=== PATIENT | female | born 1985 | race African-American/Black ===

== ENCOUNTER 2017-06-09 21:17 | Emergency (ER) | payer SELFPAY ==
[2017-06-09 21:43] LABS: Bilirubin Small (Negative); Blood, Urine Trace (Negative); Clarity Turbid (Clear); Glucose, Urine (Dipstick) Negative (Negative); Leukocyte Trace (Negative); Nitrite Positive (Negative); Pregu Control Background? CLEAR/WHITE (CLR/WHITE); Pregu Control Bar Appear? YES (CONTROL BAR); Protein, Urine (Dipstick) 30 mg/dL (Neg-Trace)
[2017-06-09 21:44] LABS: Pregnancy Test - Urine (BHCG) Negative (Negative)
[2017-06-09 21:52] LABS: Bacteria/HPF 2+ HPF (None Seen); Hyaline Casts/LPF NONE SEEN LPF (0-3 Hyaline); RBC/HPF 0-3 HPF (0-3)
[2017-06-09] MEDS ORDERED: Dexamethasone 10 MG/ML VIAL ONE (22:01)
== END 2017-06-09 22:10 | disposition home or self-care (01) ==
LOC: SCSER 21:17
DX: N30.01 Acute cystitis with hematuria (principal); D50.0 Iron deficiency anemia secondary to blood loss (chronic); F17.210 Nicotine dependence, cigarettes, uncomplicated
CPT/HCPCS: 81003; 81015; 81025; 99406; J1100

== ENCOUNTER 2017-12-04 18:53 | Emergency (ER) | payer SELFPAY ==
[2017-12-04] MEDS ORDERED: Ondansetron HCl/PF 4 MG/2 ML Vial ONE (19:16)
[2017-12-04 19:38] LABS: BHCG - Serum Negative (NEGATIVE); Pregs Control Background? CLEAR/WHITE (CLR/WHITE); Pregs Control Bar Appear? YES (CONTROL BAR)
[2017-12-04 19:43] LABS: #Basophils 0.1 thou/uL (0.0-0.2); #Lymphocytes 2.1 thou/uL (1.20-3.40); #Neutrophils 7.1 thou/uL (1.40-6.50); %Basophils 0.6 % (0.0-1.0); %Eosinophils 0.4 % (0.0-10.0); %Monocytes 9.9 % (0.0-10.0); %Neutrophils 69.1 % (42.0-75.0); Hemoglobin 8.3 g/dL (12.0-16.0); Mean Corpuscular Hemoglobin 18.8 pg (27.0-31.0); Mean Corpuscular Volume 64.8 fL (78.0-98.0); Mean Platelet Volume 7.2 fL (7.4-10.4); Platelet Count 338 thou/uL (130-400); RBC Distribution Width 19.6 % (11.5-14.5); Red Blood Cell (RBC) Count 4.43 mill/uL (4.20-5.40); White Blood Cell (WBC) Count 10.3 thou/uL (4.8-10.8)
[2017-12-04 19:52] LABS: Anisocytosis SLIGHT = 6-15 cells (100X) (0-5/hpf); Hypochromia SLIGHT = 6-15 cells (100X) (0-5/hpf); MDiff Complete? YES; Microcytosis SLIGHT = 6-15 cells (100X) (0-5/hpf); Ovalocytes SLIGHT = 2-5 cells (100X) (0-1/hpf); PLT Morphology Comment Appears Adequate; Poikilocytosis SLIGHT = 6-15 cells (100X) (0-5/hpf); Polychromasia MODERATE = 3-4 cells (100X) (0-2/hpf); Reflex for Review?? YES; Schistocytes SLIGHT = 2-5 cells (100X) (0-1/hpf); Target Cells SLIGHT = 2-5 cells (100X) (0-1/hpf); Tear Drops SLIGHT = 2-5 cells (100X) (0-1/hpf)
[2017-12-04 19:53] LABS: ALT (SGPT) 12 U/L (8-55); AST (SGOT) 14 U/L (5-34); Albumin 4.2 g/dL (3.5-5.0); Alkaline Phosphatase 104 U/L (40-150); Anion Gap 12 mmol/L (10-20); BUN (Urea Nitrogen) 10 mg/dL (7.0-18.7); Bilirubin, Total 0.7 mg/dL (0.2-1.2); Calc. Creatinine Clearance 0 mL/min (70-130); Calcium 9.2 mg/dL (7.8-10.44); Carbon Dioxide 25 mmol/L (22-29); Chloride 103 mmol/L (98-107); Estimated GFR-MDRD Greater than 90; Globulin 3.6 g/dL (2.4-3.5); Glucose 112 mg/dL (70-105); Lipase 29 U/L (8-78); Protein, Total 7.8 g/dL (6.0-8.3); Sodium 137 mmol/L (136-145)
[2017-12-04 20:02] LABS: Potassium 2.8 mmol/L (3.5-5.1)
[2017-12-04 21:10] LABS: Bilirubin Negative (Negative); Blood, Urine Moderate (Negative); Clarity CLOUDY (Clear); Glucose, Urine (Dipstick) Negative (Negative); Leukocyte Small (Negative); Nitrite Negative (Negative); Protein, Urine (Dipstick) 30 mg/dL (Neg-Trace); Specific Gravity, Urine 1.024 (1.002-1.036); Urobilinogen 0.2 mg/dL (0.2-1.0)
[2017-12-04 21:11] LABS: Bacteria/HPF 1+ HPF (None Seen); Pathc Cast-AUWi Flag 1.45 (0-2.49); Squamous Epithelial 0-3 HPF (0-3); WBC/HPF 21-50 HPF (0-3); Yeast-AUWi Flag 23.2 (0-25.0)
[2017-12-04 21:20] LABS: Trichomonas/HPF 1+ HPF (None Seen); Yeast-All Forms 2+ HPF (None Seen)
== END 2017-12-04 21:58 | disposition home or self-care (01) ==
LOC: ERS 18:53
DX: E87.6 Hypokalemia (principal); F17.210 Nicotine dependence, cigarettes, uncomplicated
CPT/HCPCS: 36415; 80053; 81003; 81015; 83690; 84703; 85025; 85060; 96361; 96372; 96374; J2405

== ENCOUNTER 2018-01-30 00:29 | Emergency (ER) | payer SELFPAY ==
[2018-01-30] MEDS ORDERED: Lidocaine 1% (PF) 30 ML VIAL ONE (00:44)
[2018-01-30] MEDS ORDERED: Lidocaine Viscous Sol 2% 15 ml UD Cup ONE (00:45)
[2018-01-30] MEDS ORDERED: Lidocaine 1% w/Epinephrine 1:100K 20 ML VIAL ONE (00:45)
[2018-01-30] MEDS ORDERED: Bupivacaine 0.25% 10 ML VIAL ONE (00:45)
[2018-01-30] MEDS ORDERED: Ketorolac Tromethamine 30 MG/ML VIAL ONE (01:07)
== END 2018-01-30 01:06 | disposition home or self-care (01) ==
LOC: ERS 00:29
DX: K02.9 Dental caries, unspecified (principal); K03.81 Cracked tooth; F17.210 Nicotine dependence, cigarettes, uncomplicated; Z71.6 Tobacco abuse counseling
CPT/HCPCS: 96372; 99406; J1885; J2001; S0020

== ENCOUNTER 2018-05-29 13:40 | Emergency (ER) | payer SELFPAY ==
[2018-05-29] MEDS ORDERED: Ketorolac Tromethamine 60 MG/2 ML VIAL ONE (14:11)
== END 2018-05-29 14:22 | disposition home or self-care (01) ==
LOC: SCSER 13:40
DX: M54.41 Lumbago with sciatica, right side (principal); D50.9 Iron deficiency anemia, unspecified; F17.210 Nicotine dependence, cigarettes, uncomplicated
CPT/HCPCS: 96372; J1885

== ENCOUNTER 2021-05-10 02:24 | Emergency (ER) | payer SELFPAY ==
[2021-05-10 13:28] LABS: SARS-CoV-2 PCR by NAA DETECTED (NotDetected)
== END 2021-05-10 04:15 | disposition home or self-care (01) ==
LOC: ERS 02:24
DX: U07.1 COVID-19 (principal); F17.210 Nicotine dependence, cigarettes, uncomplicated
CPT/HCPCS: 71046; U0003; U0005

== ENCOUNTER 2023-06-17 21:04 | Emergency (ER) | payer OTHER, SELFPAY ==
[2023-06-17] MEDS ORDERED: Ketorolac Tromethamine 30 MG (1 mL) VIAL ONE (22:15)
[2023-06-17] MEDS ORDERED: Dexamethasone 10 MG/ML VIAL ONE (22:15)
== END 2023-06-17 22:22 | disposition home or self-care (01) ==
LOC: ERS 21:04
DX: M79.604 Pain in right leg (principal); M54.50 Low back pain, unspecified; F17.210 Nicotine dependence, cigarettes, uncomplicated; V89.2XXA Person injured in unspecified motor-vehicle accident, traffic, initial encounter
CPT/HCPCS: 96372; 99283; J1100; J1885

== ENCOUNTER 2024-04-16 20:47 | Emergency (ER) | payer SELFPAY ==
[2024-04-16] MEDS ORDERED: HYDROcodone/Acetaminophen 5/325 mg Tablet ONE (21:25)
[2024-04-16] MEDS ORDERED: Sodium Chloride 0.9% 100 ML ONE (21:25)
[2024-04-16] MEDS ORDERED: Dexamethasone 10 MG/ML VIAL ONE (21:25)
[2024-04-16] MEDS ORDERED: cefTRIAXone (ROCEPHIN) 2 GM VIAL ONE (21:25)
[2024-04-16 21:43] LABS: ALT (SGPT) 8 U/L (8-55); AST (SGOT) 13 U/L (5-34); Albumin 3.3 g/dL (3.5-5.0); Alkaline Phosphatase 73 U/L (40-110); Anion Gap 15 mmol/L (10-20); BUN (Urea Nitrogen) 10 mg/dL (7.0-18.7); Bilirubin, Total 0.6 mg/dL (0.2-1.2); Calc. Creatinine Clearance 0 mL/min (70-130); Calcium 8.6 mg/dL (7.8-10.44); Carbon Dioxide 21 mmol/L (22-29); Chloride 107 mmol/L (98-107); Estimated GFR 113; Glucose 100 mg/dL (70-105); Protein, Total 7.3 g/dL (6.0-8.3); Sodium 140 mmol/L (136-145)
[2024-04-16 21:46] LABS: Hematocrit 24.8 % (36.0-47.0); Hemoglobin 6.7 g/dL (12.0-16.0); Mean Corpuscular Hemoglobin 17.6 pg (27.0-31.0); Mean Corpuscular Volume 65.1 fL (78.0-98.0); Platelet Count 269 10x3/uL (130-400); RBC Distribution Width 24.3 % (11.5-14.5); Red Blood Cell (RBC) Count 3.81 mill/uL (4.20-5.40)
[2024-04-16] MEDS ORDERED: Potassium Chloride 20 MEQ TAB ONE (21:51)
[2024-04-16 21:54] LABS: BHCG - Serum Negative (NEGATIVE); Pregs Control Background? CLEAR/WHITE (CLR/WHITE); Pregs Control Bar Appear? YES (CONTROL BAR)
[2024-04-16 22:03] LABS: Anisocytosis MARKED = >30 cells HPF (0-5); Hypochromia MODERATE=16-30 cells HPF (0-5); Large Platelets 13.1 % (0-5); Lymphocytes 18 % (21-51); Microcytosis SLIGHT = 6-15 cells HPF (0-5); Monocytes 5 % (0-10); Neutrophil 77 % (42-75); Ovalocytes SLIGHT = 2-5 cells HPF (0-1); Platelet Adequacy Comment Platelets Normal; Polychromasia SLIGHT = 2-3 cells HPF (0-2); Schistocytes SLIGHT = 2-5 cells HPF (0-1); Target Cells SLIGHT = 2-5 cells HPF (0-1); Tear Drops SLIGHT = 2-5 cells HPF (0-1)
== END 2024-04-17 02:00 | disposition home or self-care (01) ==
LOC: ERS 20:47
DX: K04.7 Periapical abscess without sinus (principal); D64.9 Anemia, unspecified; F17.210 Nicotine dependence, cigarettes, uncomplicated
CPT/HCPCS: 36415; 36430; 70487; 80053; 83605; 84703; 85025; 86850; 86900; 86901; 96365; J0696; J1100; P9016

== ENCOUNTER 2025-01-07 19:06 | Emergency (ER) | payer SELFPAY ==
[2025-01-07] MEDS ORDERED: Ibuprofen 800 MG TAB ONE (20:25)
[2025-01-07] MEDS ORDERED: HYDROcodone/Acetaminophen 5/325 mg Tablet ONE (20:26)
[2025-01-07] MEDS ORDERED: Amoxicillin/Potassium Clav 250 MG TAB ONE (20:30)
== END 2025-01-07 21:06 | disposition home or self-care (01) ==
LOC: ERS 19:06
DX: K04.7 Periapical abscess without sinus (principal); F17.210 Nicotine dependence, cigarettes, uncomplicated
CPT/HCPCS: 99282